=== PATIENT | male | born 2000 | race Two or more races ===

== ENCOUNTER 2019-11-05 17:15 | Emergency (ER) | payer BC ==
[~2019-11-05] VITALS: Ht 165.1 cm; Wt 74.3 kg
[2019-11-05 17:18] VITALS: BP 115/57
== END 2019-11-05 19:33 | disposition home or self-care (01) ==
LOC: ED 19:25
DX: G89.11 Acute pain due to trauma (principal); M25.571 Pain in right ankle and joints of right foot; F17.210 Nicotine dependence, cigarettes, uncomplicated; X58.XXXA Exposure to other specified factors, initial encounter; Y93.89 Activity, other specified; Y92.89 Other specified places as the place of occurrence of the external cause; Y99.8 Other external cause status
CPT/HCPCS: 99284; 99406